=== PATIENT | male | born 1970 | race Caucasian/White ===

== ENCOUNTER 2016-08-31 10:07 | Inpatient (IN) | payer SELFPAY ==
[2016-08-31] MEDS ORDERED: SODIUM CHLORIDE 0.9% 1,000 ML IV STA (10:29)
[2016-08-31] MEDS ORDERED: DILTIAZEM 125 MG in SODIUM CHLORIDE 0.9% 100 ML IV STA (10:29)
--- NOTE | 2016-08-31 10:33 | ED ---
Arrhythmia/Palpitations HPI - General Chief Complaint: Arrhythmia/Palpitations Stated Complaint: PATIENT STATES AFIB Time Seen by Provider: 08/31/16 10:20 Source: patient, RN notes reviewed Mode of arrival: wheelchair Limitations: no limitations - History of Present Illness Initial Comments: This is a 46-year-old male with a history of previous episodes of atrial fibrillation who states he woke up this morning with palpitations and the feeling of him being back in his atrial fibrillation rhythm. He states he will periodically going to an angle out of it. He is currently on no medications were did take 5 baby aspirin this morning on the way to the hospital. He has some vague chest discomfort he states the lightheadedness no dizziness no fevers chills nausea vomiting sweats. He denies any caffeine or energy drink or alcohol intake. He does occasionally smoke cigarettes he did smoke 3 yesterday he also states he does have a history of sleep apnea. No thyroid problems he is aware of he denies any other complaints at this time. MD Complaint: rapid heart beat, palpitations, atrial fibrillation - Related Data Home Medications Medication Instructions Recorded Confirmed Aspirin 325 - 650 mg PO DAILY PRN 08/31/16 08/31/16 Ibuprofen [Motrin] 400 - 600 mg PO Q6H PRN 08/31/16 08/31/16 Allergies Allergy/AdvReac Type Severity Reaction Status Date / Time Penicillins Allergy Unknown Verified 08/31/16 11:26 Childhood Review of Systems ROS Statement: Those systems with pertinent positive or pertinent negative responses have been documented in the HPI. ROS Other: All systems not noted in ROS Statement are negative. Past Medical History Past Medical History: Atrial Fibrillation History of Any Multi-Drug Resistant Organisms: None Reported Past Surgical History: Tonsillectomy Past Psychological History: No Psychological Hx Reported Smoking Status: Current some day smoker Past Alcohol Use History: Occasional Past Drug Use History: None Reported General Exam - General Exam Comments Initial Comments: This is a well-developed well-nourished awake alert oriented 3 male Limitations: no limitations General appearance: alert, in no apparent distress Head exam: Present: atraumatic, normocephalic, normal inspection Eye exam: Present: normal appearance, PERRL, EOMI. Absent: scleral icterus, conjunctival injection, periorbital swelling ENT exam: Present: normal exam, mucous membranes moist Neck exam: Present: normal inspection. Absent: tenderness, meningismus, lymphadenopathy Respiratory exam: Present: normal lung sounds bilaterally. Absent: respiratory distress, wheezes, rales, rhonchi, stridor Cardiovascular Exam: Present: tachycardia, irregular rhythm, normal heart sounds. Absent: systolic murmur, diastolic murmur, rubs, gallop, clicks GI/Abdominal exam: Present: soft, normal bowel sounds. Absent: distended, tenderness, guarding, rebound, rigid Extremities exam: Present: normal inspection, full ROM, normal capillary refill. Absent: tenderness, pedal edema, joint swelling, calf tenderness Back exam: Present: normal inspection Neurological exam: Present: alert, oriented X3, CN II-XII intact Psychiatric exam: Present: normal affect, normal mood Skin exam: Present: warm, dry, intact, normal color. Absent: rash Course Vital Signs 08/31/16 08/31/16 08/31/16 10:09 10:51 10:57 Temperature 96.9 F L Pulse Rate 126 H 132 H 105 H Respiratory 18 18 Rate Blood Pressure 140/89 117/68 O2 Sat by Pulse 98 Oximetry 08/31/16 08/31/16 08/31/16 11:23 12:05 12:31 Temperature Pulse Rate 123 H 91 125 H Respiratory 18 18 18 Rate Blood Pressure 119/88 127/77 111/67 O2 Sat by Pulse 97 99 99 Oximetry - Reevaluation(s) Reevaluation #1: 08/31/16 10:33 3 my evaluation and his heart rate ranged from the low 100s up to 170-180 beats per minute Reevaluation #2: 08/31/16 13:29 Reevaluation reveals no improvement neutrophils and EKG Findings - EKG Results: EKG: interpreted by [facility] EKG shows: tachycardia (Atrial fibrillation with a rate of 140 QRS duration 86 QT/QTC of 304/[address] configuration.), atrial fibrillation Medical Decision Making - Medical Decision Making I did discuss findings with the patient. He is not improved from atrial fibrillation the rate is somewhat improved he will be admitted with cardiology consultation. - Lab Data Result diagrams: 08/31/16 10:25 08/31/16 10:25 Lab Results 08/31/16 08/31/16 08/31/16 Range/Units 10:25 10:25 10:25 WBC 6.7 (3.8-10.6) k/uL RBC 5.30 (4.30-5.90) m/uL Hgb 16.2 (13.0-17.5) gm/dL Hct 49.0 (39.0-53.0) % MCV 92.4 (80.0-100.0) fL MCH 30.5 (25.0-35.0) pg MCHC 33.0 (31.0-37.0) g/dL RDW 12.7 (11.5-15.5) % Plt Count 192 (150-450) k/uL Neutrophils % 60 % Lymphocytes % 28 % Monocytes % 8 % Eosinophils % 2 % Basophils % 1 % Neutrophils # 4.0 (1.3-7.7) k/uL Lymphocytes # 1.9 (1.0-4.8) k/uL Monocytes # 0.5 (0-1.0) k/uL Eosinophils # 0.1 (0-0.7) k/uL Basophils # 0.0 (0-0.2) k/uL PT (9.0-12.0) sec INR (<1.1) APTT (22.0-30.0) sec Sodium 142 (137-145) mmol/L Potassium 4.0 (3.5-5.1) mmol/L Chloride 108 H (98-107) mmol/L Carbon Dioxide 22 (22-30) mmol/L Anion Gap 12 mmol/L BUN 13 (9-20) mg/dL Creatinine 0.84 (0.66-1.25) mg/dL Est GFR (MDRD) Af Amer >60 (>60 ml/min/1.73 sqM) Est GFR (MDRD) Non-Af >60 (>60 ml/min/1.73 sqM) Glucose 106 H (74-99) mg/dL Calcium 8.9 (8.4-10.2) mg/dL Magnesium 1.9 (1.6-2.3) mg/dL Total Bilirubin 0.8 (0.2-1.3) mg/dL AST 30 (17-59) U/L ALT 64 (21-72) U/L Alkaline Phosphatase 115 (38-126) U/L Total Creatine Kinase 169 (55-170) U/L CK-MB (CK-2) 1.4 (0.0-2.4) ng/mL CK-MB (CK-2) Rel Index 0.8 Troponin I <0.012 (0.000-0.034) ng/mL Total Protein 7.4 (6.3-8.2) g/dL Albumin 4.4 (3.5-5.0) g/dL TSH 5.830 H (0.465-4.680) mIU/L 08/31/16 Range/Units 10:25 WBC (3.8-10.6) k/uL RBC (4.30-5.90) m/uL Hgb (13.0-17.5) gm/dL Hct (39.0-53.0) % MCV (80.0-100.0) fL MCH (25.0-35.0) pg MCHC (31.0-37.0) g/dL RDW (11.5-15.5) % Plt Count (150-450) k/uL Neutrophils % % Lymphocytes % % Monocytes % % Eosinophils % % Basophils % % Neutrophils # (1.3-7.7) k/uL Lymphocytes # (1.0-4.8) k/uL Monocytes # (0-1.0) k/uL Eosinophils # (0-0.7) k/uL Basophils # (0-0.2) k/uL PT 10.5 (9.0-12.0) sec INR 1.0 (<1.1) APTT 29.0 (22.0-30.0) sec Sodium (137-145) mmol/L Potassium (3.5-5.1) mmol/L Chloride (98-107) mmol/L Carbon Dioxide (22-30) mmol/L Anion Gap mmol/L BUN (9-20) mg/dL Creatinine (0.66-1.25) mg/dL Est GFR (MDRD) Af Amer (>60 ml/min/1.73 sqM) Est GFR (MDRD) Non-Af (>60 ml/min/1.73 sqM) Glucose (74-99) mg/dL Calcium (8.4-10.2) mg/dL Magnesium (1.6-2.3) mg/dL Total Bilirubin (0.2-1.3) mg/dL AST (17-59) U/L ALT (21-72) U/L Alkaline Phosphatase (38-126) U/L Total Creatine Kinase (55-170) U/L CK-MB (CK-2) (0.0-2.4) ng/mL CK-MB (CK-2) Rel Index Troponin I (0.000-0.034) ng/mL Total Protein (6.3-8.2) g/dL Albumin (3.5-5.0) g/dL TSH (0.465-4.680) mIU/L - Radiology Data Radiology results: report reviewed (X-ray reveals no acute findings.), image reviewed Critical Care Time Critical Care Time: Yes Critical Care Time: Critical care time 35 minutes which includes initial presentation with history physical labs x-rays reevaluation the patient response to therapy reevaluation again. He long discussion with the patient regarding the findings and the need for admission. Discussion with the admitting physician. Documentation admission orders. Disposition Clinical Impression: Rapid atrial fibrillation Disposition: ADMITTED IP TO [facility] Condition: Stable
[2016-08-31 10:45] LABS: Basophils % (A) 1 %; CH 32.1; CHCM 34.9; Eosinophils # (A) 0.1 k/uL (0-0.7); Eosinophils % (A) 2 %; HDW 2.45; HGB 16.2 gm/dL (13.0-17.5); Luc # (Auto) 0.14; Luc % (Auto) 2; Lymphocytes # (A) 1.9 k/uL (1.0-4.8); Lymphocytes % (A) 28 %; MCH 30.5 pg (25.0-35.0); MCV 92.4 fL (80.0-100.0); Mean Platelet Volume 8.5; Monocytes # (A) 0.5 k/uL (0-1.0); Monocytes % (A) 8 %; Neutrophils % (A) 60 %; RDW 12.7 % (11.5-15.5); WBC 6.7 k/uL (3.8-10.6); WBC (Perox) 6.87
[2016-08-31 10:56] LABS: ALT 64 U/L (21-72); AST 30 U/L (17-59); Alkaline Phosphatase 115 U/L (38-126); Anion Gap 12 mmol/L; Blood Urea Nitrogen 13 mg/dL (9-20); Calcium 8.9 mg/dL (8.4-10.2); Carbon Dioxide 22 mmol/L (22-30); Chloride 108 mmol/L (98-107); Glucose 106 mg/dL (74-99); Magnesium 1.9 mg/dL (1.6-2.3); Non-African American GFR(MDRD) >60 (>60 ml/min/1.73 sqM); Sodium 142 mmol/L (137-145); Total Bilirubin 0.8 mg/dL (0.2-1.3); Total Protein 7.4 g/dL (6.3-8.2)
--- NOTE | 2016-08-31 11:01 | XR ---
EXAMINATION TYPE: XR chest 2V DATE OF EXAM: 08/31/2016 10:44 AM COMPARISON: Prior chest x-ray April 08, 2010 HISTORY: History of atrial fibrillation presents with dysrhythmia this morning TECHNIQUE: Frontal and lateral views of the chest are obtained. FINDINGS: There is no focal air space opacity, pleural effusion, or pneumothorax seen. The cardiac silhouette size is within normal limits. The osseous structures are intact. IMPRESSION: No acute process. No significant change from prior.
[2016-08-31 11:06] LABS: Creatine Kinase 169 U/L (55-170)
[2016-08-31 11:14] LABS: Prothrombin Time 10.5 sec (9.0-12.0)
[2016-08-31 11:19] LABS: Creatine Kinase MB 1.4 ng/mL (0.0-2.4); Troponin I <0.012 ng/mL (0.000-0.034)
[2016-08-31] MEDS ORDERED: NALOXONE 0.4 MG/ML 1 ML VIAL IV PRN (13:33)
[2016-08-31] MEDS ORDERED: HEPARIN SODIUM,PORCINE 5,000 UNIT/ML 1 ML VIAL IV ONE (13:34)
[2016-08-31] MEDS ORDERED: HEPARIN SODIUM,PORCINE/D5W PMX 25,000 UNIT in DEXTROSE/WATER 1 500ML.BAG IV SCH (13:45)
[2016-08-31] MEDS ORDERED: SODIUM CHLORIDE 0.9% 1,000 ML IV SCH (13:45)
[2016-08-31 15:22] VITALS: BMI 34.2
--- NOTE | 2016-08-31 16:42 | P.HPIM ---
History of Present Illness H&P Date: 08/31/16 Chief Complaint: Palpitations 46-year-old gentleman with a previous history of atrial fibrillation is admitted to the hospital with sudden onset palpitations which woke him up last night. Patient apparently was diagnosed with atrial fibrillation 8 years ago was recommended take aspirin however patient is noncompliant to that. Patient apparently did a pill in the pocket approach with an unknown drug for the last few years. Patient probably had a stress echocardiogram done over 4 years ago which was normal. Patient comes in this time with palpitations denies having any associated chest pain, difficulty breathing, nausea, vomiting. In the ER EKG was consistent with atrial fibrillation with rapid ventricular rate. was started on IV heparin and IV Cardizem at 10 mg per hour. Denies excessive use of alcohol. Patient does smoke half pack of cigarettes at this time. Patient drinks apparently a cup of coffee daily. Review of Systems All systems: negative (Noted in HPI) Past Medical History Past Medical History: Atrial Fibrillation Additional Past Medical History / Comment(s): current smoker History of Any Multi-Drug Resistant Organisms: None Reported Past Surgical History: Tonsillectomy Past Anesthesia/Blood Transfusion Reactions: No Reported Reaction Past Psychological History: No Psychological Hx Reported Smoking Status: Current some day smoker Past Alcohol Use History: Occasional Past Drug Use History: None Reported Medications and Allergies Home Medications Medication Instructions Recorded Confirmed Type Aspirin 325 - 650 mg PO DAILY PRN 08/31/16 08/31/16 History Ibuprofen [Motrin] 400 - 600 mg PO Q6H PRN 08/31/16 08/31/16 History Allergies Allergy/AdvReac Type Severity Reaction Status Date / Time Penicillins Allergy Unknown Verified 08/31/16 11:26 Childhood Physical Exam Vitals: Vital Signs Temp Pulse Resp BP Pulse Ox 08/31/16 14:20 97.9 F 08/31/16 13:50 108 H 18 101/69 96 Intake and Output 08/31/16 08/31/16 08/31/16 06:59 14:59 22:59 Other: Weight 102.058 kg Patient Weight 09/01/16 06:59 Weight 102.058 kg Gen Appearance alert oriented 3 in no distress Lungs currently clear to auscultation Abdomen is soft nontender no organomegaly Neurologically no focal motor or sensory deficit patient Heart irregularly irregular no murmurs appreciated Neck is supple no JVD Extremities no movements intact pupils are equal round and reactive light and accommodation Results CBC & Chem 7: 08/31/16 10:25 08/31/16 10:25 Thrombosis Risk Factor Assmnt - Choose All That Apply Each Factor Represents 1 point: Age 41-60 years, Obesity (BMI >25) Thrombosis Risk Factor Assessment Total Risk Factor Score: 2 Thrombosis Risk Factor Assessment Level: Low Risk Assessment and Plan Plan: Atrial fibrillation with rapid ventricular rate present on admission in a patient with history of atrial fibrillation #2 history of hypertension Plan Continue IV heparin continue Cardizem drip. Patient can likely be changed over to a beta fe oral Cardizem once patient converted to normal sinus rhythm. Cardiac the consultation will be placed. Echocardiogram will be obtained to assess risk factors for strokes in the future with chadsvasc score. Appears to be one right now.
[2016-08-31 17:14] VITALS: BP 112/85; PULSE 90; RESP 16; TEMP 97
[2016-09-01] MEDS ORDERED: ASPIRIN 81 MG CHEW PO SCH (09:00)
== END 2016-08-31 21:17 | disposition left against medical advice (07) | DRG 310 ==
LOC: EC 10:07 → 6SEL 13:33
PROVIDERS: ADMIT Hospitalist; ATTEND Hospitalist
DX: I48.91 Unspecified atrial fibrillation (principal); I10 Essential (primary) hypertension; G47.30 Sleep apnea, unspecified; R07.89 Other chest pain; T39.016A Underdosing of aspirin, initial encounter; F17.210 Nicotine dependence, cigarettes, uncomplicated; Z88.0 Allergy status to penicillin; Z53.21 Procedure and treatment not carried out due to patient leaving prior to being seen by health care provider; Z91.128 Patient's intentional underdosing of medication regimen for other reason; Z91.19 Patient's noncompliance with other medical treatment and regimen
CPT/HCPCS: 36415; 71020; 80053; 82550; 82553; 83735; 84443; 84484; 85025; 85610; 85730; 93005; 96361; 96365; 96366; 96367; 96376; 99291